=== PATIENT | female | born 1995 | race American Indian/Alaskan Native ===

== ENCOUNTER 2021-09-02 21:34 | Emergency (ER) | payer SELFPAY ==
[2021-09-02 21:55] VITALS: BP 144/92
[2021-09-02] MEDS ORDERED: dexAMETHasone 20 MG/5 ML VIAL IV ONE (22:42)
[2021-09-02] MEDS ORDERED: ASPIRIN 325 MG TAB PO ONE (22:42)
[2021-09-02] MEDS ORDERED: diazePAM 5 MG TAB PO ONE (22:42)
[2021-09-02 23:06] LABS: Basophils # (Auto) 0.1 K/mm3 (0.0-0.1); Basophils % (Auto) 0.9 % (0.0-1.8); Eosinophils # (Auto) 0.2 K/mm3 (0.0-0.4); Eosinophils % (Auto) 2.5 % (0.0-4.3); Hematocrit 39.3 % (30.3-42.9); Hemoglobin 13.1 gm/dl (10.1-14.3); Lymphocytes # (Auto) 2.3 K/mm3 (1.2-5.4); Lymphocytes % (Auto) 31.8 % (13.4-35.0); Mean Corpuscular HGB Conc 33 % (30-34); Mean Corpuscular Volume 96 fl (79-97); Monocytes # (Auto) 0.9 K/mm3 (0.0-0.8); Monocytes % (Auto) 12.2 % (0.0-7.3); Platelet Count 267 K/mm3 (140-440); Red Blood Count 4.08 M/mm3 (3.65-5.03); Red Cell Distribution Width 12.5 % (13.2-15.2)
--- NOTE | 2021-09-02 23:19 | XRay Report ---
CHEST PA AND LATERAL VIEWS INDICATION: chest pain. COMPARISON: None. FINDINGS: Support devices: None. Heart: Within normal limits. Lungs/Pleura: No acute pulmonary or pleural findings. IMPRESSION: 1. No acute findings. Signer Name: Veto Byrne MD Signed: 09/02/2021 11:14 PM Workstation Name: [id number]
[2021-09-02 23:27] LABS: Alanine Aminotransferase 7 units/L (7-56); Albumin 4.3 g/dL (3.9-5); Blood Urea Nitrogen 7 mg/dL (7-17); Calcium 9.5 mg/dL (8.4-10.2); Hemolysis Index 8
[2021-09-02 23:31] LABS: BUN/Creatinine Ratio 10
[2021-09-02 23:46] LABS: Bilirubin,Urine NEG (Negative); Blood,Urine LG (Negative); Color,Urine Yellow (Yellow); Mucus,Urine FEW /HPF; Protein,Urine <15 mg/dL mg/dL (Negative); Urobilinogen,Urine < 2.0 mg/dL (<2.0)
[2021-09-02] MEDS ORDERED: KETOROLAC 30 MG/1 ML INJ IV ONE (23:57)
--- NOTE | 2021-09-03 00:56 | Cat Scan Report ---
CTA CHEST WITH CONTRAST INDICATION / CLINICAL INFORMATION: chest pain. TECHNIQUE: Axial CT images were obtained through the chest after injection of IV contrast. 3 plane NV P and/or 3D reconstructions were produced. All CT scans at this location are performed using CT dose reduction for ALARA by means of automated exposure control. COMPARISON: None available. FINDINGS: PULMONARY EMBOLUS: None. THORACIC AORTA: No significant abnormality. HEART: No significant abnormality. CORONARY ARTERY CALCIFICATION: Absent -- None. MEDIASTINUM / AGUILAR: No significant abnormality. PLEURA: No pleural effusion. No pneumothorax. LUNGS: No acute air space or interstitial disease. ADDITIONAL FINDINGS: None. UPPER ABDOMEN: No acute findings. SKELETAL STRUCTURES: No significant osseous abnormality. IMPRESSION: 1. No CT evidence for pulmonary embolism. 2. No acute findings. Signer Name: Veto Byrne MD Signed: 09/03/2021 12:52 AM Workstation Name: [id number]
--- NOTE | 2021-09-03 01:29 | Emergency Department Report ---
ED Chest Pain HPI - General Chief Complaint: Chest Pain Stated Complaint: CHEST PAIN Source: patient Mode of arrival: Ambulatory Limitations: No Limitations - History of Present Illness Initial Comments: Patient is a 26-year-old -Luxembourger female with a history of anxiety who presents to the ED with complaint of acute onset persistent left lateral chest wall pain that radiates to the left for the last 12 hours. Patient states that her job entails heavy lifting and that the pain in her left chest wall got worse with lifting and movement. Patient states that in the last 6 hours she fell asleep at home and when she woke up the pain in the left chest wall was worse an d she started having shortness of breath, headache, neck pain, mid posterior thoracic pain with nausea. Patient states that she is on control. Patient denies dizziness, syncope, vomiting, abdominal pain, fall, traumatic injury, numbness and tingling or weakness of upper extremities bilaterally, fever and chills, cough, sore throat or diaphoresis. MD Complaint: chest pain (left-lateral chest pain), other (Pleuritic chest pain) -: Sudden, hour(s) (12) Onset: during exertion Pain Location: left chest Pain Radiation: LUE, back Severity: severe Severity scale (0 -10): 8 Quality: aching, sharp Consistency: constant Improves With: nothing Worsens With: exertion, inspiration, palpation, movement Context: other (Heavy lifting at work) re: nausea. denies: vomting, diaphoresis, dyspnea, sense of impending doom Other Symptoms: denies: cough, fever, rash, acid taste in mouth, leg swelling, palpitations, other Treatments Prior to Arrival: none - Related Data On Oral Contraceptives: Yes Previous Rx's Medication Instructions Recorded Last Taken Type Naproxen 500 mg PO Q12H PRN #24 tab 09/03/21 Unknown Rx hydrOXYzine PAMOATE [Vistaril] 25 mg PO Q6HR PRN #30 capsule 09/03/21 Unknown Rx Allergies Allergy/AdvReac Type Severity Reaction Status Date / Time No Known Allergies Allergy Unverified 09/02/21 22:31 Heart Score - HEART Score History: Slightly suspicious EKG: Normal Age: < 45 Risk factors: No known risk factors Troponin: < normal limit HEART Score: 0 - EKG Read Time Time EKG Completed: 21:55 EKG Read Time: 22:03 - Critical Actions Critical Actions: 0-3 pts:0.9-1.7%risk of adverse cardiac event.Candidate for discharge ED Review of Systems ROS: Stated complaint: CHEST PAIN Other details as noted in HPI Constitutional: denies: chills, fever Eyes: denies: eye pain, eye discharge, vision change ENT: denies: ear pain, throat pain Respiratory: shortness of breath. denies: cough, wheezing Cardiovascular: chest pain (Left-sided chest pain). denies: palpitations Endocrine: no symptoms reported Gastrointestinal: nausea. denies: abdominal pain, diarrhea Genitourinary: denies: urgency, dysuria, discharge Musculoskeletal: denies: back pain, joint swelling, arthralgia Skin: denies: rash, lesions Neurological: denies: headache, weakness, paresthesias Psychiatric: anxiety. denies: depression Hematological/Lymphatic: denies: easy bleeding, easy bruising ED Past Medical Hx - Past Medical History Previous Medical History?: Yes Additional medical history: Anxiety, Bronchitis - Surgical History Past Surgical History?: No - Medications Home Medications: Home Medications Medication Instructions Recorded Confirmed Last Taken Type Naproxen 500 mg PO Q12H PRN #24 tab 09/03/21 Unknown Rx hydrOXYzine PAMOATE [Vistaril] 25 mg PO Q6HR PRN #30 capsule 09/03/21 Unknown Rx ED Physical Exam - General Limitations: No Limitations General appearance: alert, in no apparent distress, anxious - Head Head exam: Present: atraumatic, normocephalic, normal inspection - Eye Eye exam: Present: normal appearance, PERRL, EOMI Pupils: Present: normal accommodation - ENT ENT exam: Present: normal exam, normal orophraynx, mucous membranes moist, TM's normal bilaterally, normal external ear exam - Neck Neck exam: Present: normal inspection, full ROM. Absent: tenderness - Respiratory Respiratory exam: Present: normal lung sounds bilaterally, chest wall tenderness (Palpable reproducible left-sided chest wall tenderness). Absent: respiratory distress, wheezes, rales, stridor, accessory muscle use, decreased breath sounds, prolonged expiratory - Cardiovascular Cardiovascular Exam: Present: regular rate, normal rhythm, normal heart sounds. Absent: systolic murmur, diastolic murmur, rubs, gallop - GI/Abdominal GI/Abdominal exam: Present: soft, normal bowel sounds. Absent: tenderness, guarding, rebound, hyperactive bowel sounds, hypoactive bowel sounds, org anomegaly - Extremities Exam Extremities exam: Present: normal inspection, full ROM, normal capillary refill - Back Exam Back exam: Present: normal inspection, full ROM. Absent: tenderness, CVA tenderness (L), muscle spasm, paraspinal tenderness, vertebral tenderness - Neurological Exam Neurological exam: Present: alert, oriented X3, CN II-XII intact, normal gait, reflexes normal - Psychiatric Psychiatric exam: Present: normal affect, anxious. Absent: normal mood, depressed, agitated, flat affect, manic, homicidal ideation, suicidal ideation - Skin Skin exam: Present: warm, dry, intact, normal color. Absent: rash ED Course Vital Signs 09/02/21 09/03/21 09/03/21 21:46 00:43 01:13 Temperature 99.0 F Pulse Rate 77 Respiratory 17 14 14 Rate Blood Pressure 144/92 [Right] O2 Sat by Pulse 100 Oximetry JOE score - Joe Score Age > 65: (0) No Aspirin use within the Past 7 Days: (0) No 3 or more CAD Risk Factors: (0) No 2 or more Angina events in past 24 hrs: (0) No Known CAD with more than 50% Stenosis: (0) No Elevated Cardiac Markers: (0) No ST Deviation Greater than 0.5mm: (0) No JOE Score: 0 ED Medical Decision Making - Lab Data Result diagrams: 09/02/21 22:46 09/02/21 22:46 - EKG Data EKG shows normal: sinus rhythm Rate: normal - EKG Data Interpretation: normal EKG 09/03/21 01:40 EKG shows normal sinus rhythm with a ventricular rate of [address] or T wave abnormalities. - Radiology Data Radiology results: report reviewed, image reviewed [facility] [address] [place] [address] Cat Scan Report Signed Patient: KRISTIN GUERRERO MR#: [id number] : 1995 Acct:[id number] Age/Sex: 26 / F ADM Date: 09/02/21 Loc: ED Attending Dr: Ordering Physician: MARIAMA LUNDBERG Date of Service: 09/02/21 Procedure(s): CT angio chest Accession Number(s): [id number] cc: MARIAMA LUNDBERG CTA CHEST WITH CONTRAST INDICATION / CLINICAL INFORMATION: chest pain. TECHNIQUE: Axial CT images were obtained through the chest after injection of IV contrast. 3 plane MIP and/or 3D reconstructions were produced. All CT scans at this location are performed using CT dose reduction for ALARA by means of automated exposure control. COMPARISON: None available. FINDINGS: PULMONARY EMBOLUS: None. THORACIC AORTA: No significant abnormality. HEART: No significant abnormality. CORONARY ARTERY CALCIFICATION: Absent -- None. MEDIASTINUM / AGUILAR: No significant abnormality. PLEURA: No pleural effusion. No pneumothorax. LUNGS: No acute air space or interstitial disease. ADDITIONAL FINDINGS: None. UPPER ABDOMEN: No acute findings. SKELETAL STRUCTURES: No significant osseous abnormality. IMPRESSION: 1. No CT evidence for pulmonary embolism. 2. No acute findings. Signer Name: Veto Byrne MD Signed: 09/03/2021 12:52 AM Workstation Name: [id number] Transcribed By: SW Dictated By: Veto Byrne MD Electronically Authenticated By: Veto Byrne MD Signed Date/Time: 09/03/2151 DD/ TD/TT: [facility] [address] [place] [address] XRay Report Signed Patient: KRISTIN GUERRERO MR#: [id number] : 1995 Acct:[id number] Age/Sex: 26 / F ADM Date: 09/02/21 Loc: ED Attending Dr: Ordering Physician: RAH GOFF MD Date of Service: 09/02/21 Procedure(s): XR chest routine 2V Accession Number(s): [id number] cc: RAH GOFF MD Fluoro Time In Minutes: CHEST PA AND LATERAL VIEWS INDICATION: chest pain. COMPARISON: None. FINDINGS: Support devices: None. Heart: Within normal limits. Lungs/Pleura: No acute pulmonary or pleural findings. IMPRESSION: 1. No acute findings. Signer Name: Veto Byrne MD Signed: 09/02/2021 11:14 PM Workstation Name: [id number] Transcribed By: ADELE Dictated By: Veto Byrne MD Electronically Authenticated By: Veto Byrne MD Signed Date/Time: 09/02/212313 DD/ 13 TD/TT: - Medical Decision Making This is a 26-year-old -Luxembourger female with a history of anxiety who presents to the ED with complaint of acute onset persistent left lateral chest wall pain that radiates to the left for the last 12 hours. Patient states that her job entails heavy lifting and that the pain in her left chest wall got worse with lifting and movement. Patient states that in the last 6 hours she fell asleep at home and when she woke up the pain in the left chest wall was worse and she started having shortness of breath, headache, neck pain, mid posterior thoracic pain with nausea. In the ED, patient is alert and oriented x3 and is not in any distress. Patient however appears to be anxious, crying during the physical exam and the physical exam showed reproducible anterior left chest wall tenderness. EKG shows normal sinus rhythm with a ventricular rate of [address] or T wave abnormalities. Lab test results were reviewed and are all nonactionable including troponin levels but D-dimer was slightly elevated. Chest x-ray showed no acute cardiopulmonary abnormalities or pneumonitis. CTA showed no evidence of PE or any cardiopulmonary abnormalities. Patient's heart score is 0. Patient was treated for pain in the ED and on reevaluation, patient's pain is well controlled medication. Patient was discharged home on medications and advised to follow-up with her primary care physician in 7 to 10 days for reevaluation or return to the ED immediately if symptoms get worse. - Differential Diagnosis ACS; PE; pneumonia; muscle strain; costochondritis; dissection Critical care attestation.: If time is entered above; I have spent that time in minutes in the direct care of this critically ill patient, excluding procedure time. ED Disposition Clinical Impression: Acute costochondritis, Pleuritic chest pain, Acute nonspecific chest pain with low risk of coronary artery disease, Anxiety as acute reaction to exceptional stress Disposition: 01 HOME / SELF CARE / HOMELESS Is pt being admited?: No Does the pt Need Aspirin: No Condition: Stable Instructions: Costochondritis, [id number], Chest Wall Pain, [id number], Nonspecific Chest Pain, Adult, Edck-[id number]-Ixpt, Chest Pain (ED) Additional Instructions: All lab test results were reviewed and are all nonactionable. Chest x-ray showed no acute cardiopulmonary abnormalities or pneumonitis. Chest CTA showed no evidence of pulmonary embolism or blood clot in your lungs. EKG showed normal sinus rhythm with a ventricular rate of 86 bpm. Therefore your symptoms are likely musculoskeletal given the fact that it is reproducible on physical exam or with movement and lifting. Therefore take medication as needed for pain, as well as for anxiety and follow-up with your primary care physician in 3 to 5 days for reevaluation return to the ED immediately if symptoms get worse. Prescriptions: Naproxen 500 mg PO Q12H PRN #24 tab PRN Reason: Pain , Severe (7-10) hydrOXYzine PAMOATE [Vistaril] 25 mg PO Q6HR PRN #30 capsule PRN Reason: Anxiety Referrals: [facility] [Provider Group] - 3-5 Days Forms: Work/School Release Form(ED) Time of Disposition: 01:26 Print Language: LATVIAN
--- NOTE | 2021-09-03 09:32 | Electrocardiograph Report ---
[facility] Test Date: 2021-09-02 Test Time: 21:55:26 Pat Name: KRISTIN GUERRERO Department: Room: Gender: F [place] P[employer]: RAFA : 1995 Requested By: RAH GOFF Order Number: [id number] Reading MD: Marci Valdes Measurements Intervals [place] Rate: 86 P: 48 TX: 144 QRS: 42 QRSD: 84 T: 28 QT: 368 QTc: 440 Interpretive Statements Sinus rhythm No previous ECG available for comparison Electronically Signed On 09-03-2021 9:32:21 EST by Marci Valdes
== END 2021-09-03 01:48 | disposition home or self-care (01) ==
LOC: ED 21:34
DX: M94.0 Chondrocostal junction syndrome [Tietze] (principal); R07.89 Other chest pain; F41.9 Anxiety disorder, unspecified; F43.0 Acute stress reaction
CPT/HCPCS: 36415; 71046; 71275; 80053; 81001; 84484; 84703; 85025; 85379; 87086; 93005; 93010; 96374; 96375; 99284; J1100; J1885; Q9967